=== PATIENT | female | born 1955 | race Caucasian/White ===

== ENCOUNTER → 2016-03-18 | Outpatient (CLI) | payer OTHER ==
--- NOTE | 2016-03-18 13:44 | REPMRS ---
Patient History The patient states she has not had a clinical breast exam in over a year. Patient is postmenopausal and has history of other cancer at age 51. No known family history of cancer. Benign ultrasound-guided core biopsy of the right breast, December 02, 2010. Digital Woman Screen Mammo: March 18, 2016 - Exam #: [id number] Bilateral CC and MLO view(s) were taken. Technologist: An aLuisa Mendes, Technologist Prior study comparison: July 23, 2014, digital woman screen mammo performed at [facility]. March 22, 2013, digital woman screen mammo performed at [facility]. February 16, 2012, digital woman screen mammo performed at [facility]. FINDINGS: There are scattered fibroglandular densities. There has been no change in the appearance of the mammogram from the prior studies. There is a mild amount of scattered fibroglandular density which is fairly symmetric. There is no interval development of dominant mass, architectural distortion, or clustered microcalcification suggestive of malignancy. ASSESSMENT: BI-RADS/ACR category 1 mammogram. Negative. Recommendation Routine screening mammogram in 1 year (for women over age 40). This mammogram was interpreted with the aid of an FDA-approved computer-aided dectection system. Electronically Signed By: Joseph Morales MD 03/18/16 0277
== END ==
LOC: M WHC 12:41
PROVIDERS: ATTEND Family Medicine
DX: Z12.31 Encounter for screening mammogram for malignant neoplasm of breast (principal)

== ENCOUNTER → 2017-05-11 | Outpatient (CLI) | payer OTHER | LOC: M PLARAD 12:30 | DX: R91.1 Solitary pulmonary nodule (principal); Z85.118 Personal history of other malignant neoplasm of bronchus and lung | CPT/HCPCS: 78815 ==

== ENCOUNTER 2017-06-07 06:36 | Day surgery (SDC) | payer OTHER ==
[2017-06-07] MEDS ORDERED: MIDAZOLAM INJ 2 MG/2 ML VIAL (J2250) As Ordered (06:40)
[2017-06-07] MEDS ORDERED: fentaNYL 100 MCG/2 ML INJECTION (J3010) As Ordered (06:40)
[2017-06-07] MEDS ORDERED: PROPOFOL 200 MG/20 ML VIAL As Ordered (06:41)
[2017-06-07] MEDS ORDERED: LIDOCAINE 2% INJ 100 MG/5 ML SDV (FOR ANES.) As Ordered (06:42)
[2017-06-07] MEDS ORDERED: ROCURONIUM BROMIDE 50 MG/5 ML VIAL As Ordered (06:42)
[2017-06-07] MEDS ORDERED: dexameTHASONE 4 MG/ML 1ML VIAL (J1100) As Ordered (06:44)
[2017-06-07] MEDS ORDERED: GLYCOPYRROLATE INJ 0.2 MG/ML 2 ML VIAL As Ordered (06:45)
[2017-06-07] MEDS ORDERED: LR 1,000 ML IV ×2 (06:45→09:45)
[2017-06-07] MEDS ORDERED: NEOSTIGMINE 10 MG/10 ML VIAL (J2710) As Ordered (06:45)
[2017-06-07] MEDS ORDERED: ONDANSETRON 4MG/2ML VIAL (J2405) As Ordered (06:46)
[2017-06-07 07:02] LABS: HEMATOCRIT 35.9 % (36.0-47.0); HEMOGLOBIN 12.4 g/dl (12.0-15.5); MEAN CORPUSCULAR HEMOGLOBIN 30.4 pg (27.0-33.0); MEAN CORPUSCULAR HGB CONC 34.5 g/dl (32.0-36.5); PLATELET COUNT, AUTOMATED 297 10^3/uL (150-450); RED BLOOD COUNT 4.08 10^6/uL (4.00-5.40); RED CELL DISTRIBUTION WIDTH 12.8 % (11.5-14.5); WHITE BLOOD COUNT 6.9 10^3/uL (4.0-10.0)
[2017-06-07] MEDS ORDERED: SCOPOLAMINE 1MG TRANSDERMAL PATCH As Ordered (07:15)
[2017-06-07 07:18] LABS: ALBUMIN/GLOBULIN RATIO 1.21 (1.00-1.93); ALKALINE PHOSPHATASE 109 U/L (45-117); ALT/SGPT 18 U/L (12-78); ANION GAP 5 MEQ/L (8-16); AST/SGOT 21 U/L (7-37); BILIRUBIN,TOTAL 0.6 MG/DL (0.2-1.0); BLOOD UREA NITROGEN 12 MG/DL (7-18); CALCIUM LEVEL 9.1 MG/DL (8.8-10.2); CARBON DIOXIDE LEVEL 28 MEQ/L (21-32); CHLORIDE LEVEL 111 MEQ/L (98-107); CREATININE FOR GFR 0.79 MG/DL (0.55-1.30); GLOMERULAR FILTRATION RATE > 60.0 (>45); GLUCOSE, FASTING 102 MG/DL (70-100); POTASSIUM SERUM 4.2 MEQ/L (3.5-5.1); SODIUM LEVEL 144 MEQ/L (136-145); TOTAL PROTEIN 7.3 GM/DL (6.4-8.2)
[2017-06-07] MEDS: SCOPOLAMINE 1MG TRANSDERMAL PATCH TOP (07:25)
[2017-06-07] MEDS: CETACAINE SPRAY 5GM As Ordered (08:05)
[2017-06-07] MEDS: EPINEPHrine 1MG/10ML SYRINGE 1.5IN As Ordered (09:00)
[2017-06-07] MEDS: THROMBIN SOLN 20,000 UNITS KIT As Ordered (09:00)
[2017-06-07] MEDS ORDERED: fentaNYL 100 MCG/2 ML INJECTION (J3010) IV (09:45)
[2017-06-07] MEDS ORDERED: PERCOCET 5MG/325MG TAB PO (09:45)
[2017-06-07] MEDS ORDERED: ONDANSETRON 4MG/2ML VIAL (J2405) IV (09:45)
[2017-06-07] MEDS ORDERED: ACETAMINOPHEN TAB 650MG DOSE (2X325MG) As Ordered (09:46)
[2017-06-07] MEDS: ACETAMINOPHEN TAB 650MG DOSE (2X325MG) PO (09:58)
[2017-06-07 11:07] LABS: APPEARANCE CLOUDY (CLEAR); COLOR RED (COLORLESS); SOURCE RIGHT UPPER LOBE
[2017-06-07 11:08] LABS: BAL DIFF IF INDICATED? NO (NO); BAL WBC 8.888 CELLS/uL (0-10); DILUTION FACTOR 1; WBC BAL COUNTED 8
== END 2017-06-07 10:58 | disposition home or self-care (01) ==
LOC: M SDC 06:36
DX: R91.8 Other nonspecific abnormal finding of lung field (principal); Z85.118 Personal history of other malignant neoplasm of bronchus and lung; E78.00 Pure hypercholesterolemia, unspecified; K21.9 Gastro-esophageal reflux disease without esophagitis; R06.02 Shortness of breath; F41.9 Anxiety disorder, unspecified; F32.9 Major depressive disorder, single episode, unspecified; R06.83 Snoring; Z79.899 Other long term (current) drug therapy; Z90.710 Acquired absence of both cervix and uterus; Z87.891 Personal history of nicotine dependence
CPT/HCPCS: 31623

== ENCOUNTER → 2017-07-04 | Outpatient (CLI) | payer OTHER ==
[~2017-07-04] MED LIST: LIDOCAINE 1% MDV 20ML VIAL As Ordered
== END ==
LOC: M RADPRO 10:39
DX: R91.8 Other nonspecific abnormal finding of lung field (principal)
CPT/HCPCS: 32405

== ENCOUNTER → 2017-07-07 | Outpatient (CLI) | payer OTHER | LOC: M RADPRO 10:18 | DX: R59.9 Enlarged lymph nodes, unspecified (principal) | CPT/HCPCS: 10022 ==

== ENCOUNTER 2019-02-19 11:56 | Day surgery (SDC) | payer OTHER ==
[~2019-02-19] VITALS: Ht 161.3 cm; Wt 77.6 kg
[~2019-02-19 11:56] MED LIST changes: +ALL10TAB29 PO; +BENA25CA4 PO; +C 50TAB PO; -LIDOCAINE 1% MDV 20ML VIAL As Ordered; +LIPI10TA PO; +MULTTAB24 PO; +PROT20TA11 PO; +ROPI0.5T PO; +STIO1AER INH; +VALT500T PO; +VENTAER IN; +ZOLO25TA PO
[2019-02-19] MEDS ORDERED: NS 1,000 ML IV ONE (13:15)
--- NOTE | 2019-02-19 13:41 | ROOR ---
Patient Name: Marni Chowdary Procedure Date: 02/19/2019 1:29 PM Date of : 1955 Age: 63 Room: [facility] Gender: Female Note Status: Finalized Procedure: Upper GI endoscopy Indications: Heartburn Providers: Lobito Batista MD Referring MD: Britton Dolan MD Requesting Provider: Medicines: Monitored Anesthesia Care Complications: No immediate complications. Procedure: Pre-Anesthesia Assessment: - The heart rate, respiratory rate, oxygen saturations, blood pressure, adequacy of pulmonary ventilation, and response to care were monitored throughout the procedure. The Endoscope was introduced through the mouth, and advanced to the second part of duodenum. The upper GI endoscopy was accomplished without difficulty. The patient tolerated the procedure well. Findings: The Z-line was regular and was found 38 cm from the incisors. No other significant abnormalities were identified in a careful examination of the stomach. The exam of the duodenum was otherwise normal. Impression: - Z-line regular, 38 cm from the incisors. - No specimens collected. - The examination was otherwise normal. Recommendation: - Patient has a contact number available for emergencies. The signs and symptoms of potential delayed complications were discussed with the patient. Return to normal activities tomorrow. Written discharge instructions were provided to the patient. - High fiber diet. - Discharge patient to home. - Follow an antireflux regimen. - Continue present medications. - Return to referring physician. - The findings and recommendations were discussed with the patient's family. Lobito Batista MD Lobito Batista MD 02/19/2019 1:41:12 PM Electronically signed by Lobito Batista MD Number of Addenda: 0 Note Initiated On: 02/19/2019 1:29 PM Estimated Blood Loss: Estimated blood loss: none.
[2019-02-19] MEDS ORDERED: LIDOCAINE 2% INJ 100 MG/5 ML SDV (FOR ANES.) As Ordered ONE (13:43)
[2019-02-19] MEDS ORDERED: PROPOFOL 200 MG/20 ML VIAL As Ordered ONE (13:43)
--- NOTE | 2019-02-19 14:00 | ROOR ---
Patient Name: Marni Chowdary Procedure Date: 02/19/2019 1:30 PM Date of : 1955 Age: 63 Room: [facility] Gender: Female Note Status: Finalized Procedure: Total Colonoscopy to Cecum Indications: Screening for colorectal malignant neoplasm Providers: Lobito Batista MD Referring MD: Britton Dolan MD Requesting Provider: Medicines: Monitored Anesthesia Care Complications: No immediate complications. Procedure: Pre-Anesthesia Assessment: - The heart rate, respiratory rate, oxygen saturations, blood pressure, adequacy of pulmonary ventilation, and response to care were monitored throughout the procedure. The Colonoscope was introduced through the anus and advanced to the cecum, identified by appendiceal orifice and ileocecal valve. The colonoscopy was performed without difficulty. The patient tolerated the procedure well. The quality of the bowel preparation was excellent. Findings: The perianal and digital rectal examinations were normal. Non-bleeding internal hemorrhoids were found during retroflexion. The hemorrhoids were small and Grade I (internal hemorrhoids that do not prolapse). No other significant abnormalities were identified in a careful examination of the remainder of the colon. The exam was otherwise without abnormality. Impression: - Non-bleeding internal hemorrhoids. - The examination was otherwise normal. - No specimens collected. - The exam was otherwise normal to the cecum. Recommendation: - Patient has a contact number available for emergencies. The signs and symptoms of potential delayed complications were discussed with the patient. Return to normal activities tomorrow. Written discharge instructions were provided to the patient. - High fiber diet. - Discharge patient to home. - Continue present medications. - Repeat colonoscopy in 10 years for screening purposes. - Return to referring physician. - The findings and recommendations were discussed with the patient's family. Lobito Batista MD Lobito Batista MD 02/19/2019 2:00:00 PM Electronically signed by Lobito Batista MD Number of Addenda: 0 Note Initiated On: 02/19/2019 1:30 PM Estimated Blood Loss: Estimated blood loss: none.
[2019-02-19 14:15] VITALS: BP 143/82
== END 2019-02-19 14:29 | disposition home or self-care (01) ==
LOC: M OPP 11:56
PROVIDERS: ATTEND Internal Medicine Gastroenterology
DX: Z12.11 Encounter for screening for malignant neoplasm of colon (principal); K64.0 First degree hemorrhoids; R12 Heartburn; K21.9 Gastro-esophageal reflux disease without esophagitis; Z79.899 Other long term (current) drug therapy; Z87.891 Personal history of nicotine dependence

== ENCOUNTER → 2019-07-03 | Outpatient (CLI) | payer OTHER ==
[~2019-07-03] MED LIST changes: +NORC1TAB7 PO; -ROPI0.5T PO; +ROPI0.5T3 PO
== END ==
LOC: M LABSMTC 10:18
PROVIDERS: ATTEND Anesthesiology
DX: Z01.818 Encounter for other preprocedural examination (principal); Z11.59 Encounter for screening for other viral diseases

== ENCOUNTER → 2021-01-20 | Outpatient (CLI) | payer OTHER ==
[~2021-01-20] MED LIST changes: -ALL10TAB29 PO; +CETI-24 PO
--- NOTE | 2021-01-20 11:23 | REPMRS ---
Patient History The patient states she has not had a clinical breast exam in over a year. Patient is postmenopausal and has history of other cancer at age 51. Family history of breast cancer at age 55 in sister. Benign ultrasound-guided core biopsy of the right breast, December 02, 2010. Patient states no breast complaints today. Patient has signed MRS History Sheet. Digital Woman Screen Mammo: January 20, 2021 - Exam #: [id number] Bilateral CC and MLO view(s) were taken. Technologist: Ml Cervantes, Technologist Prior study comparison: July 16, 2019, bilateral digital mammo screening bilat, performed at [facility]. May 29, 2018, bilateral digital mammo screening bilat, performed at [facility]. March 18, 2016, digital woman screen mammo performed at [facility]. July 23, 2014, digital woman screen mammo performed at [facility]. FINDINGS: There are scattered fibroglandular densities. Screening. Digital screening (2D) mammography was performed bilaterally in the CC and MLO projections. Additionally, breast tomosynthesis (3D mammography) was performed bilaterally in the CC and MLO projections. Todays exam was compared to the prior exam/exams. By history, the patient has no complaints of a palpable breast abnormality or other significant breast complaints. The Volpara volumetric breast density category is B, there are scattered areas of fibroglandular densities. The breasts are unchanged in size and shape. There are no sherry-soft tissue densities or spiculated masses. There is no internal architectural distortion. There are no suspicious sherry-calcific clusters. Skin thickening or nipple retraction is not present. IMPRESSION: BI-RADS Category 2- Benign Findings. There is no evidence of malignant alteration of the breasts. Followup examination recommended in one year. This mammogram was read with the assistance of [employer],an FDA approved computer aided detection system for mammography. The lifetime Tyrer-Cuzick score is 8.6% Negative x-ray reports should not delay surgical consultation if a dominant or clinically suspicious mass is present. Not all breast cancers can be identified by mammography. Therefore, we recommend that you continue to perform regular breast self-examination and physical examination and then promptly contact your physician of any concerns or changes. Adenosis and dense breasts may obscure an underlying neoplasm. No significant changes when compared with prior studies. Assessment: BI-RADS/ACR category 2 mammogram. Benign Findings. Recommendation Routine screening mammogram of both breasts in 1 year. Electronically Signed By: Mehdi Jackson MD 01/20/21 2347
== END ==
LOC: M WHC 10:08
PROVIDERS: ATTEND Family Medicine
DX: Z12.31 Encounter for screening mammogram for malignant neoplasm of breast (principal)

== ENCOUNTER → 2021-02-09 | Outpatient (CLI) | payer OTHER | LOC: M RAD 10:58 | PROVIDERS: ATTEND Internal Medicine Pulmonary Disease | DX: Z85.118 Personal history of other malignant neoplasm of bronchus and lung (principal) ==

== ENCOUNTER → 2022-02-03 | Outpatient (CLI) | payer MEDICARE | LOC: M WHC 09:26 | PROVIDERS: ATTEND Family Medicine | DX: Z12.31 Encounter for screening mammogram for malignant neoplasm of breast (principal) ==

== ENCOUNTER → 2022-03-22 | Outpatient (CLI) | payer MEDICARE | LOC: M PLAIMG 12:26 | PROVIDERS: ATTEND Internal Medicine Pulmonary Disease | DX: Z85.118 Personal history of other malignant neoplasm of bronchus and lung (principal) ==

== ENCOUNTER → 2023-05-06 | Outpatient (CLI) | payer MEDICARE ==
[~2023-05-06] MED LIST changes: -ROPI0.5T3 PO; +ROPI0.5T33 PO
== END ==
LOC: M RAD 09:21
PROVIDERS: ATTEND Internal Medicine Pulmonary Disease
DX: Z08 Encounter for follow-up examination after completed treatment for malignant neoplasm (principal); Z85.118 Personal history of other malignant neoplasm of bronchus and lung

== ENCOUNTER → 2023-06-08 | Outpatient (CLI) | payer MEDICARE | LOC: M WUC 09:17 | PROVIDERS: ATTEND Physician Assistant Medical | DX: M54.50 Low back pain, unspecified (principal); M54.30 Sciatica, unspecified side; M25.551 Pain in right hip ==

== ENCOUNTER → 2023-08-04 | Outpatient (CLI) | payer MEDICARE | LOC: M WHC 10:29 | PROVIDERS: ATTEND Family Medicine | DX: Z12.31 Encounter for screening mammogram for malignant neoplasm of breast (principal) ==

== ENCOUNTER → 2024-05-28 | Outpatient (CLI) | payer MEDICARE | LOC: M RAD 10:04 | PROVIDERS: ATTEND Internal Medicine Pulmonary Disease | DX: Z85.118 Personal history of other malignant neoplasm of bronchus and lung (principal); I31.39 Other pericardial effusion (noninflammatory); Z90.49 Acquired absence of other specified parts of digestive tract; R91.8 Other nonspecific abnormal finding of lung field ==